=== PATIENT | female | born 1990 ===

== ENCOUNTER 2017-01-09 08:56 | Emergency (ER) | payer MEDICAID ==
[2017-01-09 08:56] VITALS: BMI 26.6
[2017-01-09 09:08] VITALS: BP 113/74; PULSE 88; RESP 20; TEMP 97.9; O2SAT 98
--- NOTE | 2017-01-09 11:37 | C.PDOC ---
History Of Present Illness 26 year old female presents to the ED with complaints of a dry cough for the past few weeks. Patient has a history of allergies and is not taking anything for it. Denies fever, nausea, vomiting, chest pain, SOB, or recent travel. Chief Complaint (Nursing): Cough, Cold, Congestion History Per: Patient History/Exam Limitations: no limitations Onset/Duration Of Symptoms: Days Current Symptoms Are (Timing): Still Present Sick Contacts (Context): None Associated Symptoms: Cough. denies: Fever, Chills, Sore Throat, Nasal Congestion, Nausea, Vomiting Ear Symptoms: Bilateral: None Severity: Mild Past Medical History Reviewed: Historical Data, Nursing Documentation, Vital Signs Vital Signs: Last Vital Signs Temp 97.9 F 01/09/17 09:06 Pulse 88 01/09/17 09:06 Resp 20 01/09/17 09:06 BP 113/74 01/09/17 09:06 Pulse Ox 98 01/09/17 11:46 - Medical History PMH: Asthma (LAST HOSPITALIZED "I BELIEVE LAST YEAR."(2016)) Surgical History: Tonsillectomy - [facility] Procedures CLOSURE SKIN & SUBCUTANEOUS NEC (11/06/14) DIATHER/CRYO TURBINECTOM (08/03/14) ETHMOIDECTOMY (08/03/14) EXC MAX SINUS LESION NEC (08/03/14) OTHER COMPUTER ASSISTED SURGERY (08/03/14) Family History: States: Unknown Family Hx - Social History Hx Tobacco Use: No Hx Alcohol Use: Yes Hx Substance Use: Yes (Marijuana) - Immunization History Hx Tetanus Toxoid Vaccination: Yes Hx Influenza Vaccination: No Hx Pneumococcal Vaccination: Yes Review Of Systems Except As Marked, All Systems Reviewed And Found Negative. Constitutional: Negative for: Fever, Chills Cardiovascular: Negative for: Chest Pain Respiratory: Positive for: Cough. Negative for: Shortness of Breath, Sputum, Wheezing Gastrointestinal: Negative for: Nausea, Vomiting Skin: Negative for: Rash Physical Exam - Physical Exam Appears: Non-toxic, No Acute Distress Skin: Normal Color, Warm, Dry Head: Atraumatic, Normacephalic Eye(s): bilateral: Normal Inspection Ear(s): Bilateral: Normal Nose: No Discharge, Other (+Surgical changes to the nares secondary to recent polyp removal) Oral Mucosa: Moist Throat: Erythema, No Exudate, Other (+cobblestoning noted) Neck: Supple Lymphatic: No Adenopathy Chest: Symmetrical Cardiovascular: Rhythm Regular Respiratory: Normal Breath Sounds, No Accessory Muscle Use, No Rales, No Rhonchi , No Wheezing Extremity: Normal ROM Neurological/Psych: Oriented x3, Normal Speech, Normal Cognition ED Course And Treatment O2 Sat by Pulse Oximetry: 98 (Room air) Pulse Ox Interpretation: Normal Progress Note: Rx given and patient advised to follow up with the clinic or return if symptoms worsen. Disposition - Disposition Disposition: HOME/ ROUTINE Disposition Time: 09:45 Condition: GOOD Additional Instructions: Thank you for letting us take care of you today. Your provider was Dr. Cardona. You were treated for seasonal allergies. The emergency medical care you received today was directed at your acute symptoms. If you were prescribed any medication, please fill it and take as directed. It may take several days for your symptoms to resolve. Return to the Emergency Department if your symptoms worsen, do not improve, or if you have any other problems. Please contact your doctor or call one of the physicians/clinics you have been referred to that are listed on the Patient Visit Information form that is included in your discharge packet. Bring any paperwork you were given at discharge with you along with any medications you are taking to your follow up visit. Our treatment cannot replace ongoing medical care by a primary care provider (PCP) outside of the emergency department. Thank you for allowing the [facility] team to be part of your care today. Follow up with your doctor in 3-4 days to be re-evaluated. Prescriptions: Montelukast [Singulair] 10 mg PO DAILY #14 tab Instructions: Allergic Rhinitis (ED) - Clinical Impression Clinical Impression: Seasonal allergies - Scribe Statement The provider has reviewed the documentation as recorded by the Scribe Rowdy Wynne. Provider Attestation: All medical record entries made by the Scribe were at my direction and personally dictated by me. I have reviewed the chart and agree that the record accurately reflects my personal performance of the history, physical exam, medical decision making, and the department course for this patient. I have also personally directed, reviewed, and agree with the discharge instructions and disposition.
== END 2017-01-09 09:46 | disposition home or self-care (01) ==
LOC: C.ER 08:56
DX: J30.2 Other seasonal allergic rhinitis (principal)

== ENCOUNTER 2017-04-30 22:07 | Emergency (ER) | payer MEDICAID ==
[2017-04-30 22:07] VITALS: BMI 26.6
[2017-04-30] MEDS ORDERED: Albuterol-Ipratrop 3 mg / 0.5 (3 ml) UD INH STA (22:22)
[2017-04-30 22:26] VITALS: TEMP 98.6
--- NOTE | 2017-04-30 23:19 | C.PDOC ---
History Of Present Illness 26 year old female BIBA for an acute allergic reaction after taking aleve. Patient has a known allergy to ibuprofen; solumedrol, epi, and benadryl administered by ALS. Patient reports taking benadryl prior to ALS arrival; as per ALS, patient's symptoms improved LINE SERVER. Denies SOB, rash, or throat itchiness. Patient smokes 4 cigarettes a day. Chief Complaint (Nursing): Shortness Of Breath History Per: Patient History/Exam Limitations: no limitations Onset/Duration Of Symptoms: Hrs Current Symptoms Are (Timing): Still Present Possible Cause: Medication Associated Symptoms: denies: Skin Rash, Trouble Swallowing, Itching, Chest Pain Home/EMS Treatment: Benadryl Recent travel outside of the [place]: No Past Medical History Reviewed: Historical Data, Nursing Documentation, Vital Signs Vital Signs: Last Vital Signs Temp 98.6 F 04/30/17 22:22 Pulse 98 H 04/30/17 23:31 Resp 18 04/30/17 23:38 BP 119/84 04/30/17 23:31 Pulse Ox 97 04/30/17 23:31 - Medical History PMH: Asthma (LAST HOSPITALIZED "I BELIEVE LAST YEAR."(2016)) Surgical History: Tonsillectomy - [facility] Procedures CLOSURE SKIN & SUBCUTANEOUS NEC (11/06/14) DIATHER/CRYO TURBINECTOM (08/03/14) ETHMOIDECTOMY (08/03/14) EXC MAX SINUS LESION NEC (08/03/14) OTHER COMPUTER ASSISTED SURGERY (08/03/14) Family History: States: Unknown Family Hx - Social History Hx Tobacco Use: No Hx Alcohol Use: Yes Hx Substance Use: Yes (Marijuana) - Immunization History Hx Tetanus Toxoid Vaccination: Yes Hx Influenza Vaccination: No Hx Pneumococcal Vaccination: Yes Review Of Systems ENT: Negative for: Mouth Pain, Mouth Swelling, Throat Pain, Throat Swelling Cardiovascular: Negative for: Chest Pain, Palpitations Respiratory: Positive for: Wheezing. Negative for: Cough, Shortness of Breath Skin: Negative for: Rash Physical Exam - Physical Exam Appears: Non-toxic Skin: Normal Color, Warm, Dry, No Rash Head: Atraumatic, Normacephalic Oral Mucosa: Moist Lips: Normal Appearing, No Swelling Throat: Normal, No Other (Swelling) Neck: Normal, Supple Chest: Symmetrical, No Tenderness Cardiovascular: Rhythm Regular, No Murmur Respiratory: No Accessory Muscle Use, No Rales, Rhonchi (Scattered), Wheezing, Other (Mild-moderate respiratory distress) Gastrointestinal/Abdominal: Soft, No Tenderness Neurological/Psych: Oriented x3, Normal Speech, Normal Cognition ED Course And Treatment O2 Sat by Pulse Oximetry: 98 (Room air) Pulse Ox Interpretation: Normal Progress Note: Nebulizer treatment administered. Reevaluation Time: 23:17 Reassessment Condition: Improved (calm comfortable, persistent mild scattered wheezing which pt considers baseline Refuses further nebs treatments.) Medical Decision Making Medical Decision Making: allergic rxn to Aleve, ? prior allergic rxn's to ibuprofen. Much improved in ED, stable for d/c Disposition Doctor Will See Patient In The: Office Counseled Patient/Family Regarding: Studies Performed, Diagnosis - Disposition Referrals: Jocelyne Conde MD [Staff Provider] - Disposition: HOME/ ROUTINE Disposition Time: 23:18 Condition: GOOD Additional Instructions: return to ER if symtoms worsten Instructions: General Allergic Reaction (ED) Forms: [facility] (Tamazight) - Clinical Impression Clinical Impression: Asthma, Allergic reaction caused by a drug - Scribe Statement The provider has reviewed the documentation as recorded by the Scribterrell Nicholas All medical record entries made by the Scribe were at my direction and personally dictated by me. I have reviewed the chart and agree that the record accurately reflects my personal performance of the history, physical exam, medical decision making, and the department course for this patient. I have also personally directed, reviewed, and agree with the discharge instructions and disposition.
[2017-04-30 23:32] VITALS: BP 119/84; PULSE 98; RESP 18
[2017-05-01 04:06] VITALS: O2SAT 98
== END 2017-04-30 23:40 | disposition home or self-care (01) ==
LOC: C.ER 22:07
DX: J45.909 Unspecified asthma, uncomplicated (principal); T50.995A Adverse effect of other drugs, medicaments and biological substances, initial encounter; Y92.89 Other specified places as the place of occurrence of the external cause; Z72.0 Tobacco use

== ENCOUNTER 2017-05-14 07:14 | Day surgery (SDC) | payer MEDICAID ==
[2017-05-14] MEDS ORDERED: ceFAZolin IV 1 gm in Dextrose 1 GM/50 ML BAG IVPB ONE (07:22)
[2017-05-14] MEDS ORDERED: Lidocaine 2% w Epi 1:100,000 Inj IJ ONE (07:23)
[2017-05-14] MEDS ORDERED: EPINEPHrine 1:1000 Nasal Sol(30mL) ONE (07:23)
[2017-05-14] MEDS ORDERED: Acetaminophen-Codeine 300/30 mg Tab PO PRN (08:29)
[2017-05-14] MEDS ORDERED: Dextrose 5%/0.45% NS 1,000 ML IV SCH (08:30)
[2017-05-14] MEDS ORDERED: Lactated Ringer's 1,000 ML IV ONE (08:55)
[2017-05-14] MEDS ORDERED: Midazolam 2 MG/2 ML VIAL ONE (08:57)
[2017-05-14] MEDS ORDERED: Propofol 10 mg/ml Inj (20 ML) ONE (08:57)
[2017-05-14] MEDS ORDERED: White Petrolatum/Mineral Oil Ophth Oint(3.5 gm) ONE (09:01)
[2017-05-14] MEDS ORDERED: Succinylcholine Chloride 20 mg/ml Syr (5 ml) IV ONE (09:02)
[2017-05-14] MEDS ORDERED: HYDROmorphone 0.5 mg/0.5 ml ISec IVP PRN (10:22)
[2017-05-14] MEDS ORDERED: Lactated Ringer's 1,000 ML IV SCH (10:30)
[2017-05-14 13:30] VITALS: BP 123/74; PULSE 88; RESP 18; TEMP 97.8; O2SAT 97
--- NOTE | 2017-05-14 19:46 | OP ---
PROCEDURE DATE: 05/14/2017 PREOPERATIVE DIAGNOSIS: Nasal polyposis. POSTOPERATIVE DIAGNOSIS: Nasal polyposis. PROCEDURE: Endoscopic left ethmoidectomy, endoscopic left sphenoidotomy, and endoscopic left frontal sinusotomy. DESCRIPTION OF PROCEDURE: The patient was brought into the room and placed in the supine position. Anesthesia was initiated through an ET tube. Adrenaline-soaked pledgets were inserted into the nasal cavity, remained there for at least 5 minutes and removed. Navigation was set up and used throughout case in order to make sure that the skull base and orbit were not entered. The patient was draped in the usual manner. The scope was inserted into the nasal cavity on the left. The nasal turbinate was injected with lidocaine with epinephrine and medialized. Polyps were noted in the left ethmoid sinuses. The debrider was used to enter the ethmoid area inferomedially going posteriorly to the anterior face of the sphenoid and anteriorly and superiorly until the polyps were removed. The frontal recess was noted to be stenosed and opened using forceps. Next, the middle turbinate was lateralized. A polyp was noted medial to the middle turbinate and the debrider was used to remove it. Next, the suction hooked up to navigation and was used to locate the sphenoid antrum, which was noted to be stenosed and enlarged using forceps. Next, attention was turned to the right, it was noted that the middle turbinate was adherent to the lateral nasal wall, it was freed from the lateral nasal wall. Some polyps were noted in the nasal cavity and emanating from the ethmoid sinuses, which were also debrided. It was noted that this was not in the consent; however, I felt that the patient had polyps on the other side which were not clearly seen on CAT scan and nasal endoscopy in the office due to the fact that the middle turbinate had lateralized. The patient would beneficial from their removal. Bleeding was controlled on both sides using Adrenaline-soaked pledgets and suction cautery. Splints were placed. The patient was taken off anesthesia and taken to recovery room in a stable manner. Phil Araya MD [facility]
== END 2017-05-14 13:10 | disposition home or self-care (01) ==
LOC: C.SDS 07:14
PROVIDERS: ATTEND Otolaryngology
DX: J32.1 Chronic frontal sinusitis (principal); J32.2 Chronic ethmoidal sinusitis; J32.3 Chronic sphenoidal sinusitis; J33.9 Nasal polyp, unspecified
CPT/HCPCS: 31255; 31276; 31288; 88304; J0690; J2250; J2405; J2704; J3010; J7120

== ENCOUNTER 2017-05-28 08:07 | Emergency (ER) | payer MEDICAID ==
[2017-05-28 08:07] VITALS: BMI 26.6
[2017-05-28 08:16] VITALS: TEMP 98.5
--- NOTE | 2017-05-28 08:53 | C.PDOC ---
History Of Present Illness Patient is a 26 year old female presents to ED for evaluation of intermittent squeezing abdominal pain for the last 2 days. States that pain comes and goes throughout the entire day. Pt states she felt a heart burn yesterday. Notes pain is not affect by food intake. Denies taking any OTC pain medications. Notes last BM was this morning, soft stool. Otherwise, denies any n/v/d, vaginal bleeding, vaginal discharge, dysuria, hematuria, urinary frequency, or fever. LMP: 05/04/17. pt sts she overate on Saturday. Time Seen by Provider: 05/28/17 08:13 Chief Complaint (Nursing): Abdominal Pain History Per: Patient History/Exam Limitations: no limitations Onset/Duration Of Symptoms: Days (2), Intermittent Episodes Current Symptoms Are (Timing): Still Present Location Of Pain/Discomfort: Diffuse Radiation Of Pain To:: None Quality Of Discomfort: Other (squeezing intermittently) Associated Symptoms: denies: Fever, Vomiting, Loss Of Appetite, Back Pain, Constipation, Urinary Symptoms Exacerbating Factors: None Alleviating Factors: None Last Bowel Movement: Today Additional History Per: Patient Abnormal Vaginal Bleeding: No Last Menstral Period: Past Medical History Reviewed: Historical Data, Nursing Documentation, Vital Signs Vital Signs: Last Vital Signs Temp 98.5 F 05/28/17 08:12 Pulse 97 H 05/28/17 08:12 Resp 20 05/28/17 08:12 BP 96/67 L 05/28/17 08:12 Pulse Ox 97 05/28/17 09:37 - Medical History PMH: Asthma (LAST HOSPITALIZED "I BELIEVE LAST YEAR."(2016)) Surgical History: Tonsillectomy - [facility] Procedures CLOSURE SKIN & SUBCUTANEOUS NEC (11/06/14) DIATHER/CRYO TURBINECTOM (08/03/14) ETHMOIDECTOMY (08/03/14) EXC MAX SINUS LESION NEC (08/03/14) OTHER COMPUTER ASSISTED SURGERY (08/03/14) Family History: States: Unknown Family Hx - Social History Hx Tobacco Use: No Hx Alcohol Use: No Hx Substance Use: Yes (Marijuana) - Immunization History Hx Tetanus Toxoid Vaccination: Yes Hx Influenza Vaccination: No Hx Pneumococcal Vaccination: Yes Review Of Systems Constitutional: Negative for: Fever, Chills Gastrointestinal: Positive for: Abdominal Pain. Negative for: Nausea, Vomiting , Diarrhea, Constipation, Melena, Hematochezia Genitourinary: Negative for: Dysuria, Frequency, Hematuria, Vaginal Discharge, Vaginal Bleeding, Pelvic Pain Musculoskeletal: Negative for: Back Pain Skin: Negative for: Rash Neurological: Negative for: Weakness, Numbness Physical Exam - Physical Exam Appears: Non-toxic, No Acute Distress Skin: Normal Color, Warm, Dry, No Rash Head: Atraumatic, Normacephalic Eye(s): bilateral: Normal Inspection Oral Mucosa: Moist Neck: Normal ROM, Supple Chest: Symmetrical, No Deformity, No Tenderness Cardiovascular: Rhythm Regular, No Murmur Respiratory: Normal Breath Sounds, No Rales, No Rhonchi, No Wheezing Gastrointestinal/Abdominal: Soft, Tenderness (mild suprapubic, and right hypogastric tenderness. No RLQ or ruq tenderness, neg mcburneys and neg murphys) , No Guarding, No Rebound, No Other ((-)McBurney's (-)Carrera's) Back: Normal Inspection, No CVA Tenderness Extremity: Bilateral: Atraumatic, Normal ROM Neurological/Psych: Oriented x3, Normal Speech, Normal Cognition ED Course And Treatment - Laboratory Results Result Diagrams: 05/28/17 09:01 05/28/17 09:01 O2 Sat by Pulse Oximetry: 97 (on RA) Pulse Ox Interpretation: Normal Medical Decision Making Medical Decision Making: Plan: Blood work, UA Patient was given Pepcid. 940 am On re-evaluation, patient reports feeling better. Abdomen remains soft,non tender, pt denies urinary symtpoms, willnot treat for uti. . No acute distress, smiling and talking to friend. will d/c with pepcid, f/u pmd. Disposition Counseled Patient/Family Regarding: Studies Performed, Diagnosis, Need For Followup, Rx Given - Disposition Referrals: Jocelyne Conde MD [Staff Provider] - Disposition: HOME/ ROUTINE Disposition Time: 09:42 Condition: STABLE Additional Instructions: Eat bland foods in small amounts. Take Pepcid as prescribed. Follow up with Dr Conde. Return to ER for any worse pain, vomiting, diarrhea or any other concerning symptoms. 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 - Scribe Statement The provider has reviewed the documentation as recorded by the Olimpiaibterrell Rangel All medical record entries made by the Olimpiaibe were at my direction and personally dictated by me. I have reviewed the chart and agree that the record accurately reflects my personal performance of the history, physical exam, medical decision making, and the department course for this patient. I have also personally directed, reviewed, and agree with the discharge instructions and disposition.
[2017-05-28 08:54] LABS: RBC URINE 1 /hpf (0-3); URINE BILIRUBIN NEGATIVE (NEGATIVE); URINE BLOOD NEGATIVE (NEGATIVE); URINE COLOR Yellow (YELLOW); URINE GLUCOSE (UA) NORMAL (Normal); URINE KETONE NEGATIVE (NEGATIVE); URINE LEUKOCYTE ESTERASE 1+ Leu/uL (Negative); URINE PROTEIN NEGATIVE (NEGATIVE); URINE UROBILINOGEN NORMAL mg/dL (0.2-1.0); WBC URINE 9 /hpf (0-5)
[2017-05-28 09:05] LABS: BASO # 0.1 K/uL (0.0-0.2); BASO % 0.6 % (0.0-2.0); EOS # 0.2 K/uL (0.0-0.7); EOS % 2.4 % (0.0-4.0); HEMATOCRIT 40.8 % (34.0-47.0); LYMPH # 1.4 K/uL (1.0-4.3); MEAN CELL VOLUME 91.7 fL (81.0-99.0); MEAN CORPUSCULAR HEMOGLOBIN 30.7 pg (27.0-31.0); MEAN CORPUSCULAR HGB CONC 33.5 g/dL (33.0-37.0); MEAN PLATELET VOLUME 8.5 fL (7.2-11.7); MONO # 0.9 K/uL (0.0-0.8); MONO % 10.3 % (0.0-10.0); RED CELL DISTRIBUTION WIDTH 14.3 % (11.5-14.5)
[2017-05-28 09:14] LABS: CHLORIDE 107 mmol/L (98-107)
[2017-05-28 09:15] LABS: POTASSIUM 3.9 mmol/L (3.6-5.2); SODIUM 139 mmol/L (132-148)
[2017-05-28 09:17] LABS: ALB/GLOB RATIO 1.3 (1.0-2.1); ALKALINE PHOSPHATASE 81 U/L (38-126); AST/SGOT 15 U/L (14-36); BILIRUBIN,TOTAL 0.3 mg/dL (0.2-1.3); CARBON DIOXIDE 22 mmol/L (22-30); GFR AFRICAN-AMERICAN > 60; TOTAL PROTEIN 6.1 g/dL (6.3-8.3)
[2017-05-28 09:18] LABS: ALT/SGPT 23 U/L (9-52); BLOOD UREA NITROGEN 8 mg/dL (7-17); CALCIUM 8.5 mg/dl (8.6-10.4); GLUCOSE,RANDOM 95 mg/dL (65-105)
[2017-05-28 09:56] VITALS: BP 99/64; PULSE 90; RESP 18
[2017-05-28 19:03] VITALS: O2SAT 97
== END 2017-05-28 09:55 | disposition home or self-care (01) ==
LOC: C.ER 08:07
DX: K29.70 Gastritis, unspecified, without bleeding (principal)

== ENCOUNTER 2017-09-30 22:52 | Emergency (ER) | payer MEDICAID ==
[2017-09-30 22:53] VITALS: BMI 26.6
[2017-09-30 23:10] VITALS: BP 115/80; PULSE 99; RESP 20; TEMP 99.6; O2SAT 97
--- NOTE | 2017-09-30 23:40 | C.PDOC ---
History Of Present Illness 27 year old female presents to the ED for evaluation of cough, cold, facial pressure, chest and nasal congestion which began around 2 days ago. Patient feels like her asthma is "acting up." She denies fever, chills, recent travel. Time Seen by Provider: 09/30/17 23:13 Chief Complaint (Nursing): Cough, Cold, Congestion History Per: Patient History/Exam Limitations: no limitations Onset/Duration Of Symptoms: Days (2) Current Symptoms Are (Timing): Still Present Associated Symptoms: Cough, Nasal Congestion. denies: Fever, Chills Additional History Per: Patient Past Medical History Reviewed: Historical Data, Nursing Documentation, Vital Signs Vital Signs: Last Vital Signs Temp 99.6 F 09/30/17 23:06 Pulse 99 H 09/30/17 23:06 Resp 20 09/30/17 23:06 BP 115/80 09/30/17 23:06 Pulse Ox 97 10/01/17 00:18 - Medical History PMH: Asthma (LAST HOSPITALIZED "I BELIEVE LAST YEAR."(2016)) Surgical History: Tonsillectomy - [facility] Procedures CLOSURE SKIN & SUBCUTANEOUS NEC (11/06/14) DIATHER/CRYO TURBINECTOM (08/03/14) ETHMOIDECTOMY (08/03/14) EXC MAX SINUS LESION NEC (08/03/14) OTHER COMPUTER ASSISTED SURGERY (08/03/14) Family History: States: Unknown Family Hx - Social History Hx Tobacco Use: No Hx Alcohol Use: No Hx Substance Use: Yes (Marijuana) - Immunization History Hx Tetanus Toxoid Vaccination: Yes Hx Influenza Vaccination: No Hx Pneumococcal Vaccination: Yes Review Of Systems Constitutional: Negative for: Fever, Chills ENT: Positive for: Nose Congestion Respiratory: Positive for: Cough Physical Exam - Physical Exam Appears: Non-toxic, No Acute Distress Skin: Normal Color, Warm, Dry Head: Atraumatic, Normacephalic Eye(s): bilateral: Normal Inspection Ear(s): Bilateral: Normal Nose: Discharge Oral Mucosa: Moist Throat: Normal, No Erythema, No Exudate Neck: Normal ROM, Supple Chest: Symmetrical, No Deformity, No Tenderness Cardiovascular: Rhythm Regular, No Murmur Respiratory: No Rales, No Rhonchi, Wheezing (diffuse, expiratory ) Extremity: Normal ROM, Capillary Refill (less than 2 seconds ) Neurological/Psych: Oriented x3, Normal Speech, Normal Cognition Gait: Steady ED Course And Treatment O2 Sat by Pulse Oximetry: 97 (on RA) Pulse Ox Interpretation: Normal Progress Note: Albuterol INH, Benadryl PO and Prednisone PO administered. Patient reports missed period on arrival. UCG positive. Patient denies any OB related complaints at this ricky, is made aware of result and is advised to follow up for care. Shayna is resting comfortably, showing no signs of distress and reports an improvement in his symptoms. Patient is stable for discharge and is advised to follow up with PMD within 1-2 days for further evaluation. 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 - Scribe Statement The provider has reviewed the documentation as recorded by the Scribe (Marguerite Rangel) All medical record entries made by the Scribe were at my direction and personally dictated by me. I have reviewed the chart and agree that the record accurately reflects my personal performance of the history, physical exam, medical decision making, and the department course for this patient. I have also personally directed, reviewed, and agree with the discharge instructions and disposition.
[2017-09-30] MEDS ORDERED: DiphenhydrAMINE 12.5 mg/5 ml LIQ UD (5 ml) PO STA (23:41)
[2017-09-30] MEDS ORDERED: Albuterol 0.083% Inhal Sol (2.5 mg/3 mL) UD ONE (23:41)
[2017-09-30] MEDS ORDERED: Albuterol 0.083% Inhal Sol (2.5 mg/3 mL) UD INH SCH (23:45)
== END 2017-10-01 00:25 | disposition home or self-care (01) ==
LOC: C.ER 22:52
DX: J06.9 Acute upper respiratory infection, unspecified (principal); J45.909 Unspecified asthma, uncomplicated; Z32.01 Encounter for pregnancy test, result positive

== ENCOUNTER 2017-11-15 02:32 | Emergency (ER) | payer MEDICAID ==
[2017-11-15 02:32] VITALS: BMI 26.6
[2017-11-15] MEDS ORDERED: Albuterol-Ipratrop 3 mg / 0.5 (3 ml) UD ONE (02:54)
[2017-11-15] MEDS ORDERED: Albuterol-Ipratrop 3 mg / 0.5 (3 ml) UD INH STA (03:00)
--- NOTE | 2017-11-15 03:30 | C.PDOC ---
History Of Present Illness 27 year old female with PMHx of asthma presents to the ED c/o URI symptoms for the past couple of days. Patient states that tonight she developed chest tightness, wheezing. Patient reports she was admitted in the past [place] asthma but did not need a ventilator. Patient states she had a nebulizer at home. Patient denies fever, chills, nausea, vomit, diarrhea, recent travel. Chief Complaint (Nursing): Shortness Of Breath History Per: Patient History/Exam Limitations: no limitations Onset/Duration Of Symptoms: Days Current Symptoms Are (Timing): Still Present Initiating Event: Upper Respiratory Illness Quality: Tightness Current Respiratory Medications: See Home Med List Severity: None Recent travel outside of the [place]: No Additional History Per: Patient Past Medical History Reviewed: Historical Data, Nursing Documentation, Vital Signs Vital Signs: Last Vital Signs Temp 97 F L 11/15/17 03:45 Pulse 90 11/15/17 03:45 Resp 20 11/15/17 03:45 BP 118/70 11/15/17 03:45 Pulse Ox 98 11/15/17 03:45 - Medical History PMH: Asthma Surgical History: Tonsillectomy - [facility] Procedures CLOSURE SKIN & SUBCUTANEOUS NEC (11/06/14) DIATHER/CRYO TURBINECTOM (08/03/14) ETHMOIDECTOMY (08/03/14) EXC MAX SINUS LESION NEC (08/03/14) OTHER COMPUTER ASSISTED SURGERY (08/03/14) Family History: States: Unknown Family Hx - Social History Hx Tobacco Use: No Hx Alcohol Use: No Hx Substance Use: No - Immunization History Hx Tetanus Toxoid Vaccination: Yes Hx Influenza Vaccination: No Hx Pneumococcal Vaccination: Yes Review Of Systems Constitutional: Negative for: Fever, Chills Cardiovascular: Negative for: Chest Pain Respiratory: Positive for: Cough, Shortness of Breath Gastrointestinal: Negative for: Nausea, Vomiting, Abdominal Pain Genitourinary: Negative for: Dysuria Skin: Negative for: Rash Neurological: Negative for: Weakness, Numbness, Headache Physical Exam - Physical Exam Appears: Non-toxic, No Acute Distress Skin: Normal Color, Warm, Dry Head: Atraumatic, Normacephalic Eye(s): bilateral: Normal Inspection Ear(s): Bilateral: Normal Nose: No Discharge, No Deformity Oral Mucosa: Moist Throat: Normal, No Erythema, No Exudate Neck: Normal ROM, Supple Chest: Symmetrical Cardiovascular: Rhythm Regular, No Murmur Respiratory: Wheezing (B/L expiratory ) Gastrointestinal/Abdominal: Soft, No Tenderness, No Guarding, No Rebound Extremity: Normal ROM, No Tenderness, No Deformity, No Swelling Neurological/Psych: Oriented x3, Normal Speech, Normal Cognition Gait: Steady ED Course And Treatment O2 Sat by Pulse Oximetry: 96 (On RA) Pulse Ox Interpretation: Normal Medical Decision Making Medical Decision Making: Impression: asthma exacerbation Plan: * Albuterol 3 ml INH * Prednisone 60 mg PO Disposition - Disposition Referrals: [facility] [Outside] Disposition: HOME/ ROUTINE Disposition Time: 03:28 Condition: GOOD Prescriptions: Albuterol 0.083% [Albuterol 0.083% Inhal [place] (2.5 mg/3 ml) UD] 2.5 mg IH QID PRN #25 neb PRN Reason: Cough And Congestion predniSONE [predniSONE Tab] 20 mg PO DAILY #5 tab Instructions: Asthma in Adults Forms: [facility] ([place]inean) - Clinical Impression Clinical Impression: Asthma attack - Scribe Statement The provider has reviewed the documentation as recorded by the Scribe Ruslan Shea All medical record entries made by the Scribe were at my direction and personally dictated by me. I have reviewed the chart and agree that the record accurately reflects my personal performance of the history, physical exam, medical decision making, and the department course for this patient. I have also personally directed, reviewed, and agree with the discharge instructions and disposition.
[2017-11-15 03:46] VITALS: BP 118/70; PULSE 90; RESP 20; TEMP 97
[2017-11-15 03:49] VITALS: O2SAT 96
== END 2017-11-15 03:46 | disposition home or self-care (01) ==
LOC: C.ER 02:32
DX: J45.909 Unspecified asthma, uncomplicated (principal); F17.210 Nicotine dependence, cigarettes, uncomplicated

== ENCOUNTER 2017-11-27 22:51 | Emergency (ER) | payer MEDICAID ==
[2017-11-27 22:51] VITALS: BMI 26.6
--- NOTE | 2017-11-27 23:08 | C.PDOC ---
History Of Present Illness Patient presents to ED today with complaints of shortness of breath for the past 3 weeks. She reports she was on a short course of steroids which she has finished however the symptoms are still present. She is able to speak full sentences and denies any fever, chills, nausea and vomiting. She has no other complaints. Time Seen by Provider: 11/27/17 23:07 Chief Complaint (Nursing): Shortness Of Breath History Per: Patient History/Exam Limitations: no limitations Onset/Duration Of Symptoms: Days Current Symptoms Are (Timing): Still Present Associated Symptoms: denies: Fever Past Medical History Reviewed: Historical Data, Nursing Documentation, Vital Signs Vital Signs: Last Vital Signs Temp 98.0 F 11/27/17 22:58 Pulse 96 H 11/27/17 22:58 Resp 22 11/27/17 23:44 BP 137/84 11/27/17 22:58 Pulse Ox 96 11/28/17 01:35 - Medical History PMH: Asthma Surgical History: Tonsillectomy - [facility] Procedures CLOSURE SKIN & SUBCUTANEOUS NEC (11/06/14) DIATHER/CRYO TURBINECTOM (08/03/14) ETHMOIDECTOMY (08/03/14) EXC MAX SINUS LESION NEC (08/03/14) OTHER COMPUTER ASSISTED SURGERY (08/03/14) Family History: States: Unknown Family Hx - Social History Hx Tobacco Use: No Hx Alcohol Use: No Hx Substance Use: No - Immunization History Hx Tetanus Toxoid Vaccination: Yes Hx Influenza Vaccination: No Hx Pneumococcal Vaccination: Yes Review Of Systems Constitutional: Negative for: Fever, Chills Respiratory: Positive for: Shortness of Breath Gastrointestinal: Negative for: Vomiting, Diarrhea Physical Exam - Physical Exam Appears: Non-toxic Skin: Normal Color Head: Normacephalic Eye(s): bilateral: Normal Inspection Oral Mucosa: Moist Neck: Supple Chest: Symmetrical Cardiovascular: Rhythm Regular Respiratory: Decreased Breath Sounds, Wheezing (diffuse) Neurological/Psych: Oriented x3 ED Course And Treatment - Laboratory Results Result Diagrams: 11/27/17 23:42 11/27/17 23:42 ECG: Interpreted By Me, Viewed By Me ECG Rhythm: Sinus Rhythm, R BBB, Nonspecific Changes Rate From EC O2 Sat by Pulse Oximetry: 96 (RA) Pulse Ox Interpretation: Normal - Radiology CXR: Interpreted by Me, Viewed By Me CXR Interpretation: No: Infiltrates, Fracture, Pnemothorax Reevaluation Time: 01:32 Reassessment Condition: Improved Disposition Counseled Patient/Family Regarding: Studies Performed, Diagnosis, Need For Followup - Disposition Referrals: Jocelyne Conde MD [Staff Provider] - Disposition: HOME/ ROUTINE Disposition Time: 23:08 Condition: FAIR Prescriptions: Albuterol/Ipratropium [Duoneb 3 MG/3 Ml-0.5 MG/3 Ml 3 Ml] 3 ml IH QID PRN #50 neb PRN Reason: Wheezing Azithromycin [Zithromax Tri-Fabián] 500 mg PO DAILY #3 tab Prednisone [Deltasone] 20 mg PO DAILY #5 tablet Promethazine/Codeine [Codeine/Promethazine 10 MG/5 Ml-6.25 MG/5 Ml] 5 ml PO QID PRN #200 udc PRN Reason: Cough Instructions: Asthma, Adult (DC) Forms: [facility] (Croatian) - Clinical Impression Clinical Impression: Exacerbation of asthma - Scribe Statement The provider has reviewed the documentation as recorded by the Scribe (Yodit Julien) Provider Attestation: All medical record entries made by the Scribe were at my direction and personally dictated by me. I have reviewed the chart and agree that the record accurately reflects my personal performance of the history, physical exam, medical decision making, and the department course for this patient. I have also personally directed, reviewed, and agree with the discharge instructions and disposition.
[2017-11-27] MEDS ORDERED: Sodium Chloride 0.9% 1,000 ML IV ONE (23:09)
[2017-11-27] MEDS ORDERED: Albuterol-Ipratrop 3 mg / 0.5 (3 ml) UD ONE (23:10)
[2017-11-27] MEDS: Albuterol-Ipratrop 3 mg / 0.5 (3 ml) UD IH SCH ×3 (23:15→23:54)
[2017-11-27 23:45] LABS: BASO % 0.5 % (0.0-2.0); EOS # 1.4 K/uL (0.0-0.7); EOS % 13.4 % (0.0-4.0); HEMOGLOBIN 13.1 g/dL (11.0-16.0); LYMPH # 1.9 K/uL (1.0-4.3); MEAN CELL VOLUME 92.7 fL (81.0-99.0); MEAN CORPUSCULAR HEMOGLOBIN 31.7 pg (27.0-31.0); MEAN CORPUSCULAR HGB CONC 34.2 g/dL (33.0-37.0); MEAN PLATELET VOLUME 8.2 fL (7.2-11.7); MONO # 0.8 K/uL (0.0-0.8); MONO % 7.9 % (0.0-10.0); NEUT # 6.1 K/uL (1.8-7.0); NEUT % 59.2 % (50.0-75.0); RBC 4.15 Mil/uL (3.80-5.20); RED CELL DISTRIBUTION WIDTH 14.1 % (11.5-14.5); WHITE BLOOD COUNT 10.2 K/uL (4.8-10.8)
[2017-11-27 23:51] LABS: ABG ALLEN TEST POS; ARTERIAL BLOOD GAS HCO3 24.6 mmol/L (21-28); ARTERIAL BLOOD GAS O2 SAT 97.5 % (95-98); ARTERIAL BLOOD GAS PCO2 42 mm/Hg (35-45); ARTERIAL BLOOD GAS PH 7.38 (7.35-7.45); ARTERIAL BLOOD GAS PO2 78 mm/Hg (80-100); ARTERIAL BLOOD GAS TCO2 26.1 mmol/L (22-28)
[2017-11-27 23:57] LABS: ALB/GLOB RATIO 1.4 (1.0-2.1); ALBUMIN 3.8 g/dL (3.5-5.0); ALT/SGPT 21 U/L (9-52); AST/SGOT 15 U/L (14-36); BLOOD UREA NITROGEN 16 mg/dL (7-17); CALCIUM 9.2 mg/dl (8.6-10.4); GFR AFRICAN-AMERICAN > 60; GFR NON-AFRICAN AMERICAN > 60
[2017-11-28] MEDS ORDERED: Albuterol-Ipratrop 3 mg / 0.5 (3 ml) UD ONE ×2 (00:26)
[2017-11-28 00:52] LABS: SQUAMOUS EPITHIAL < 1 /hpf (0-5); URINE BILIRUBIN NEGATIVE (NEGATIVE); URINE BLOOD NEGATIVE (NEGATIVE); URINE CLARITY Clear (Clear); URINE COLOR Yellow (YELLOW); URINE GLUCOSE (UA) NORMAL (Normal); URINE LEUKOCYTE ESTERASE NEG Leu/uL (Negative); URINE NITRATE NEGATIVE (NEGATIVE); URINE PROTEIN NEGATIVE (NEGATIVE); URINE UROBILINOGEN NORMAL mg/dL (0.2-1.0)
[2017-11-28 00:59] LABS: HCG,QUALITATIVE URINE NEGATIVE (NEGATIVE)
[2017-11-28 02:11] VITALS: BP 118/80; PULSE 91; RESP 18; TEMP 97.9; O2SAT 99
--- NOTE | 2017-11-28 11:05 | RAD ---
HISTORY: sob COMPARISON: Chest x-ray performed 05/26/15 TECHNIQUE: Chest PA and lateral FINDINGS: LUNGS: No focal consolidation. Please note that chest x-ray has limited sensitivity for the detection of pulmonary masses. PLEURA: No significant pleural effusion identified. No definite pneumothorax . CARDIOVASCULAR: The cardiomediastinal silhouette appears within normal limits of size. OSSEOUS STRUCTURES: No acute osseous abnormality identified. VISUALIZED UPPER ABDOMEN: Unremarkable. OTHER FINDINGS: None. IMPRESSION: No focal consolidation identified.
--- NOTE | 2017-11-28 18:50 | CARD ---
APPROVED REPORT EKG Measurement Heart [id number] <Conclusion> Sinus rhythm with short WY Possible Left atrial enlargement Incomplete right bundle branch block Borderline ECG
== END 2017-11-28 02:15 | disposition home or self-care (01) ==
LOC: C.ER 22:51
DX: J45.901 Unspecified asthma with (acute) exacerbation (principal)
CPT/HCPCS: 36600; 71046; 80053; 81001; 82803; 84703; 85025; 93005; 94640; 96361; 96374; 99284; J2930; J7040

== ENCOUNTER 2018-03-11 08:29 | Emergency (ER) | payer MEDICAID ==
[2018-03-11 08:29] VITALS: BMI 26.6
[2018-03-11 08:37] VITALS: RESP 20; TEMP 98.8
[2018-03-11] MEDS ORDERED: Albuterol-Ipratrop 3 mg / 0.5 (3 ml) UD INH STA ×3 (08:45→10:01)
[2018-03-11] MEDS ORDERED: Albuterol-Ipratrop 3 mg / 0.5 (3 ml) UD ONE ×2 (08:47→09:39)
--- NOTE | 2018-03-11 08:55 | C.PDOC ---
History Of Present Illness 27-year-old female, PMHx includes Asthma, presents to the emergency department with complaints of a productive cough that is associated with wheezing for the past few days. Patient states she took all of her Prednisone, and is not getting any better, prompting visit. She denies any fever, chills, chest pain, or any other associated symptoms. No other complaints at this time. Of note, pt tates she has never been admitted/intubated for asthma. Time Seen by Provider: 03/11/18 08:38 Chief Complaint (Nursing): Cough, Cold, Congestion History Per: Patient History/Exam Limitations: no limitations Current Symptoms Are (Timing): Still Present Past Medical History Reviewed: Historical Data, Nursing Documentation, Vital Signs Vital Signs: Last Vital Signs Temp 98.8 F 03/11/18 08:30 Pulse 100 H 03/11/18 08:30 Resp 20 03/11/18 08:30 BP 112/73 03/11/18 08:30 Pulse Ox 95 03/11/18 09:39 - Medical History PMH: Asthma Surgical History: Tonsillectomy - [facility] Procedures CLOSURE SKIN & SUBCUTANEOUS NEC (11/06/14) DIATHER/CRYO TURBINECTOM (08/03/14) ETHMOIDECTOMY (08/03/14) EXC MAX SINUS LESION NEC (08/03/14) OTHER COMPUTER ASSISTED SURGERY (08/03/14) Family History: States: No Known Family Hx - Social History Hx Tobacco Use: No Hx Alcohol Use: No Hx Substance Use: No - Immunization History Hx Tetanus Toxoid Vaccination: Yes Hx Influenza Vaccination: No Hx Pneumococcal Vaccination: Yes Review Of Systems Constitutional: Negative for: Fever Cardiovascular: Negative for: Chest Pain, Palpitations, Light Headedness Respiratory: Positive for: Cough, Wheezing. Negative for: Hemoptysis, Sputum Gastrointestinal: Negative for: Vomiting Musculoskeletal: Negative for: Back Pain Neurological: Negative for: Weakness, Numbness, Headache, Dizziness Physical Exam - Physical Exam Appears: Non-toxic, No Acute Distress Skin: Normal Color, Warm, Dry, No Rash Head: Atraumatic, Normacephalic Eye(s): bilateral: Normal Inspection Nose: Normal Oral Mucosa: Moist Lips: Normal Appearing Neck: Normal ROM Chest: Symmetrical Cardiovascular: Rhythm Regular, No Murmur Respiratory: No Decreased Breath Sounds, No Accessory Muscle Use, Wheezing (B/L expiratory) Extremity: Normal ROM, No Deformity, No Swelling Neurological/Psych: Oriented x3, Normal Speech ED Course And Treatment O2 Sat by Pulse Oximetry: 95 (RA) Pulse Ox Interpretation: Normal Medical Decision Making Medical Decision Making: Impression: Asthma exacerbation Plan: * Peak Flow * Duoneb, Decadron * Reassess and Disposition Disposition - Disposition Disposition: HOME/ ROUTINE Disposition Time: 11:23 Condition: GOOD Instructions: Upper Respiratory Infection (ED), Asthma in Adults Forms: [facility] (Vietnamese) - Clinical Impression Clinical Impression: Asthma exacerbation - Scribe Statement The provider has reviewed the documentation as recorded by the Scribe (Caryl Coronado) All medical record entries made by the Scribe were at my direction and personally dictated by me. I have reviewed the chart and agree that the record accurately reflects my personal performance of the history, physical exam, medical decision making, and the department course for this patient. I have also personally directed, reviewed, and agree with the discharge instructions and disposition.
[2018-03-11 11:54] VITALS: BP 121/73; PULSE 95; O2SAT 99
== END 2018-03-11 11:54 | disposition home or self-care (01) ==
LOC: C.ER 08:29
DX: J45.901 Unspecified asthma with (acute) exacerbation (principal)
CPT/HCPCS: 94640; 96372; 99283; J1100

== ENCOUNTER 2018-03-17 11:50 | Emergency (ER) | payer MEDICAID ==
[2018-03-17 11:51] VITALS: BMI 26.6
[2018-03-17 12:05] VITALS: BP 111/67; PULSE 109; TEMP 98.8; O2SAT 95
[2018-03-17 12:12] VITALS: RESP 16
[2018-03-17] MEDS ORDERED: Albuterol-Ipratrop 3 mg / 0.5 (3 ml) UD INH STA (13:08)
[2018-03-17] MEDS ORDERED: Albuterol-Ipratrop 3 mg / 0.5 (3 ml) UD ONE (13:20)
--- NOTE | 2018-03-17 13:42 | C.PDOC ---
History Of Present Illness 27yo female comes to ER with complaints of asthma exacerbation. Patient was evaluated in this ER on 03/11 for similar complaints and given steroids and nebulizer treatments. Patient states she gives herselfs 2-3 nebulizer treatments per day and uses her albuterol puffer 2-3 times a day without the aerochamber spacer. She does demonstrate good puffer technique. Patient states she smokes 4 cigarettes per day and has 3 cats at home; her mother also lives with her and smokes "outside the house." Patient denies fever, chest pain, dizziness, lightheadedness. Time Seen by Provider: 03/17/18 12:56 Chief Complaint (Nursing): Shortness Of Breath History Per: Patient History/Exam Limitations: no limitations Onset/Duration Of Symptoms: Days Current Symptoms Are (Timing): Still Present Initiating Event: Upper Respiratory Illness Current Respiratory Medications: Albuterol Associated Symptoms: denies: Fever, Chills, Sweating, Chest Pain, Dizziness, Light-headedness Reports Recently: Seen In ED Additional History Per: Patient Past Medical History Reviewed: Historical Data, Nursing Documentation, Vital Signs Vital Signs: Last Vital Signs Temp 98.8 F 03/17/18 11:59 Pulse 109 H 03/17/18 11:59 Resp 16 03/17/18 12:10 BP 111/67 03/17/18 11:59 Pulse Ox 95 03/17/18 13:41 - Medical History PMH: Asthma Surgical History: Tonsillectomy - [facility] Procedures CLOSURE SKIN & SUBCUTANEOUS NEC (11/06/14) DIATHER/CRYO TURBINECTOM (08/03/14) ETHMOIDECTOMY (08/03/14) EXC MAX SINUS LESION NEC (08/03/14) OTHER COMPUTER ASSISTED SURGERY (08/03/14) Family History: States: No Known Family Hx, Unknown Family Hx - Social History Hx Tobacco Use: No Hx Alcohol Use: Yes Hx Substance Use: Yes - Immunization History Hx Tetanus Toxoid Vaccination: Yes Hx Influenza Vaccination: No Hx Pneumococcal Vaccination: No Review Of Systems Except As Marked, All Systems Reviewed And Found Negative. Constitutional: Negative for: Fever, Chills Cardiovascular: Negative for: Chest Pain, Light Headedness Respiratory: Positive for: Shortness of Breath Neurological: Negative for: Dizziness Physical Exam - Physical Exam Appears: Non-toxic, No Acute Distress Skin: Normal Color, Warm, Dry Head: Atraumatic, Normacephalic Eye(s): bilateral: Normal Inspection, EOMI Nose: Normal Oral Mucosa: Moist Neck: Normal, Supple Chest: Symmetrical Cardiovascular: Rhythm Regular Respiratory: Wheezing (minor inspiratory/expiratory wheeze on right side) Extremity: Normal ROM, No Pedal Edema Neurological/Psych: Oriented x3 ED Course And Treatment O2 Sat by Pulse Oximetry: 95 (RA) Pulse Ox Interpretation: Normal - Radiology CXR: Interpreted by Me CXR Interpretation: Yes: No Acute Disease Progress Note: pepcid, prednisone, Duonebs x 2 Reevaluation Time: 13:40 Reassessment Condition: Improved Medical Decision Making Medical Decision Making: asthma smoking 3-4 ciggs/day? poor med compliance good MDI technique lost to f/u w Dr. Medrano- Art Coordinator Disposition Doctor Will See Patient In The: Office Counseled Patient/Family Regarding: Studies Performed, Diagnosis - Disposition Referrals: Jocelyne Medrano MD [Staff Provider] - Disposition: HOME/ ROUTINE Disposition Time: 13:41 Condition: GOOD Additional Instructions: Asthma: Duoneb Inhaled treatments with TWO ampules of Duoneb- every 3-4 hours (5-7x/day when symptomatic) Prednisone 40 mg daily for 4 more days (to complete 5 days of Prednisone) pepcid 20 mg twice a day (9AM and 9PM) lowers stomach acid and gastritis from the Prednisone and lowers allergic component of Asthma Albuterol puffer 2 puffs every 4 hours as needed when not home. Always use with Aerochamber Puffer (plastic tube) for higher effectiveness ( improves from 20% to 70%) Cigarette smoking and 2nd hand smoking are VERY strong provokers of Asthma exacerbations. Follow-up with Dr. Medrano- your Asthma specialist. Costochondritis: Prednisone with help with this too ice packs to the affected ribs 1/2 hour per hour, nothing hot no hot showers (makes inflammation worse) Prescriptions: Albuterol HFA [Ventolin HFA 90 mcg/actuation (8 g)] 2 puff IH Q4H PRN #1 puff PRN Reason: asthma Albuterol/Ipratropium [Duoneb 3 MG/3 Ml-0.5 MG/3 Ml 3 Ml] 6 ml IH Q4H PRN #100 neb PRN Reason: asthma Prednisone [Deltasone] 40 mg PO DAILY #8 tablet Spacer, Inhalation [Aerochamber] 1 dev IH DAILY #1 dev Instructions: Asthma in Adults, Costochondritis (DC) Forms: [facility] (Faroese) - Clinical Impression Clinical Impression: Asthma, Thoracic back pain - Scribe Statement The provider has reviewed the documentation as recorded by the Scribe (Yodit Julien) Provider Attestation: All medical record entries made by the Scribe were at my direction and personally dictated by me. I have reviewed the chart and agree that the record accurately reflects my personal performance of the history, physical exam, medical decision making, and the department course for this patient. I have also personally directed, reviewed, and agree with the discharge instructions and disposition.
--- NOTE | 2018-03-17 14:42 | RAD ---
HISTORY: cough w asthma. COMPARISON: November 28, 2017. TECHNIQUE: Chest PA and lateral FINDINGS: LUNGS: No active pulmonary disease. PLEURA: No significant pleural effusion identified. No pneumothorax apparent. CARDIOVASCULAR: Normal. OSSEOUS STRUCTURES: No significant abnormalities. VISUALIZED UPPER ABDOMEN: Normal. OTHER FINDINGS: None. IMPRESSION: No active disease. No significant interval change compared to the prior examination(s).
== END 2018-03-17 14:05 | disposition home or self-care (01) ==
LOC: C.ER 11:50
DX: J45.909 Unspecified asthma, uncomplicated (principal); F17.210 Nicotine dependence, cigarettes, uncomplicated

== ENCOUNTER 2018-05-08 17:16 | Emergency (ER) | payer MEDICAID ==
[2018-05-08 17:16] VITALS: BMI 26.6
[2018-05-08 17:44] VITALS: BP 113/79; PULSE 97; RESP 99; TEMP 98.3; O2SAT 95
[2018-05-08] MEDS ORDERED: Albuterol 0.083% Inhal Sol (2.5 mg/3 mL) UD IH STA ×2 (18:04→18:38)
--- NOTE | 2018-05-08 18:08 | C.PDOC ---
History Of Present Illness <Shea Renee - Last Filed: 05/08/18 18:05> <Lelia Salter - Last Filed: 05/08/18 18:19> 27 year old female with history of asthma presents to ED for evaluation of cold symptoms for the past 3 weeks. Associated symptoms include nasal congestion and dry cough. Patient reports she developed wheezing for the past two days and was not improved by inhaler treatment. Patient also states she is taking low dose of Prednisone with no relief. Denies fever, dyspnea, shortness of breath, abdominal pain, nausea. (Lelia Salter) <Shea Renee - Last Filed: 05/08/18 18:05> History Per: Patient History/Exam Limitations: no limitations Onset/Duration Of Symptoms: Days Current Symptoms Are (Timing): Still Present Associated Symptoms: Cough (dry), Nasal Congestion Recent travel outside of the [place]: No <Lelia Salter - Last Filed: 05/08/18 18:19> Time Seen by Provider: 05/08/18 17:47 Chief Complaint (Nursing): Cough, Cold, Congestion Past Medical History - Medical History PMH: Asthma Surgical History: Tonsillectomy Family History: States: Unknown Family Hx - Social History Hx Tobacco Use: No Hx Alcohol Use: Yes Hx Substance Use: Yes - Immunization History Hx Tetanus Toxoid Vaccination: Yes Hx Influenza Vaccination: No Hx Pneumococcal Vaccination: No <Shea Renee - Last Filed: 05/08/18 18:05> Reviewed: Historical Data, Nursing Documentation, Vital Signs <Lelia Salter - Last Filed: 05/08/18 18:19> Vital Signs: Last Vital Signs Temp 98.3 F 05/08/18 17:43 Pulse 97 H 05/08/18 17:43 Resp 99 H 05/08/18 17:43 BP 113/79 05/08/18 17:43 Pulse Ox 95 05/08/18 18:09 - [facility] Procedures CLOSURE SKIN & SUBCUTANEOUS NEC (11/06/14) DIATHER/CRYO TURBINECTOM (08/03/14) ETHMOIDECTOMY (08/03/14) EXC MAX SINUS LESION NEC (08/03/14) OTHER COMPUTER ASSISTED SURGERY (08/03/14) Physical Exam - Physical Exam Appears: Well, Non-toxic, No Acute Distress Skin: Normal Color, Warm, Dry, No Rash Head: Normacephalic Eye(s): bilateral: PERRL Ear(s): Bilateral: Normal Nose: No Flaring, Discharge (B/L nasal congestion with scant clear rhinorrhea) Oral Mucosa: Moist, No Drooling Throat: No Erythema, No Drooling Neck: Normal ROM, Trachea Midline, Supple Cardiovascular: Rhythm Regular, No Murmur, No JVD Respiratory: No Decreased Breath Sounds, No Accessory Muscle Use, No Rales, No Rhonchi, No Stridor, Wheezing (scattered R>L expiratory wheezing, BS equal B/L) Gastrointestinal/Abdominal: Soft, No Tenderness, No Distention, No Guarding Back: No Vertebral Tenderness, No Paraspinal Tenderness Extremity: Normal ROM, No Tenderness, No Deformity, No Swelling Neurological/Psych: Oriented x3, Normal Speech <Shea Renee - Last Filed: 05/08/18 18:05> ED Course And Treatment O2 Sat by Pulse Oximetry: 95 <Shea Renee - Last Filed: 05/08/18 18:05> Disposition <Shea Renee - Last Filed: 05/08/18 18:05> <Lelia Salter - Last Filed: 05/08/18 18:19> - Disposition Forms: [facility] (Kiswahili)
[2018-05-08] MEDS ORDERED: Albuterol 0.083% Inhal Sol (2.5 mg/3 mL) UD ONE ×2 (18:15→18:49)
--- NOTE | 2018-05-08 18:26 | C.PDOC ---
History Of Present Illness 27 year old female with history of asthma presents to ED for evaluation of cold symptoms for the past 2 weeks associated with nasal congestion and dry cough. Patient reports she developed wheezing for the past two days and was not improved by inhaler treatment. Patient also states she is taking low dose of Prednisone, given by PMD with no relief. Pt Denies fever, drooling, dyspnea, shortness of breath, CP, palpitation, abdominal pain, nausea, vomiting, back pain, UTI sx. Ambulate to ED for evaluation, not in any apparent distress. Time Seen by Provider: 05/08/18 17:47 Chief Complaint (Nursing): Cough, Cold, Congestion History Per: Patient Onset/Duration Of Symptoms: Days Current Symptoms Are (Timing): Still Present Recent travel outside of the [place]: No Past Medical History Reviewed: Historical Data, Nursing Documentation, Vital Signs Vital Signs: Last Vital Signs Temp 98.3 F 05/08/18 17:43 Pulse 97 H 05/08/18 17:43 Resp 99 H 05/08/18 17:43 BP 113/79 05/08/18 17:43 Pulse Ox 95 05/08/18 19:06 - Medical History PMH: Asthma Surgical History: No Surg Hx, Tonsillectomy - [facility] Procedures CLOSURE SKIN & SUBCUTANEOUS NEC (11/06/14) DIATHER/CRYO TURBINECTOM (08/03/14) ETHMOIDECTOMY (08/03/14) EXC MAX SINUS LESION NEC (08/03/14) OTHER COMPUTER ASSISTED SURGERY (08/03/14) Family History: States: No Known Family Hx - Social History Hx Tobacco Use: No Hx Alcohol Use: Yes Hx Substance Use: Yes - Immunization History Hx Tetanus Toxoid Vaccination: Yes Hx Influenza Vaccination: No Hx Pneumococcal Vaccination: No Review Of Systems Except As Marked, All Systems Reviewed And Found Negative. ENT: Positive for: Nose Congestion Respiratory: Positive for: Cough (dry), Wheezing. Negative for: Other (dyspnea) Gastrointestinal: Negative for: Nausea, Abdominal Pain Physical Exam - Physical Exam Appears: Well, Non-toxic, No Acute Distress Skin: Normal Color, Warm, Dry, No Rash Head: Normacephalic Eye(s): bilateral: PERRL Ear(s): Bilateral: Normal Nose: No Flaring, Discharge (B/L nasal congestion with scant cldar rhinorrhea) Oral Mucosa: Moist, No Drooling Tongue: Normal Appearing Lips: Normal Appearing Throat: No Erythema, No Drooling Neck: Trachea Midline, Supple Cardiovascular: Rhythm Regular, No Murmur, No JVD Respiratory: No Decreased Breath Sounds, No Accessory Muscle Use, No Stridor, Wheezing (scattered expiratory wheezing R>L, BS equal B/L) Gastrointestinal/Abdominal: Soft, No Tenderness, No Distention, No Guarding Extremity: Normal ROM, No Pedal Edema, No Swelling Neurological/Psych: Oriented x3, Normal Speech ED Course And Treatment O2 Sat by Pulse Oximetry: 95 (RA) Pulse Ox Interpretation: Normal - Radiology CXR: Interpreted by Me, Viewed By Me CXR Interpretation: Yes: No Acute Disease Progress Note: On re-eval, pt is afebrile, hemodynamicaly stable. Non-toxic. Ambulatory in ED with stable gait. PulseOx 96%RA. ENT: no acute findings. Neck: Supple, (-) midline tenderness. Lungs: mod improvement in exp wheezing , BS equal B/L. Abd: benign, (-) guarding, (-) rebound. Neurologicaly intact. CXR (-) acute findings. Pt has clinical findings c/w asthma exacerbation. Pt advised on course of ds. ref. to f/u with PMD, Pulm in 2-3 days for re-eval. return to Ed if any worsening or new changes. Disposition Counseled Patient/Family Regarding: Studies Performed, Diagnosis, Need For Followup, Rx Given - Disposition Referrals: Jocelyne Conde MD [Staff Provider] - Disposition: HOME/ ROUTINE Disposition Time: 18:59 Condition: STABLE Additional Instructions: Encourage fluids Take medication as prescribed Continue nebulizer treatment every 4 hours for 2-3 days Follow up with PMD in 2-3 days for re-evaluation. return to ED if any worsening or new changes. Prescriptions: Albuterol 0.083% [Albuterol 0.083% Inhal [place] (2.5 mg/3 ml) UD] 2.5 mg IH Q6 #50 neb Cetirizine HCl [Zyrtec] 10 mg PO DAILY #20 capsule Prednisone [Deltasone] 40 mg PO DAILY #8 tablet Instructions: Asthma in Adults Forms: [facility] (Stateless) - Clinical Impression Clinical Impression: Asthma attack - PA / WATER RESOURCE ENGINEER / Resident Statement MD/DO has reviewed & agrees with the documentation as recorded. - Scribe Statement The provider has reviewed the documentation as recorded by the Scribe renetta Ayala All medical record entries made by the Dontrell were at my direction and personally dictated by me. I have reviewed the chart and agree that the record accurately reflects my personal performance of the history, physical exam, medical decision making, and the department course for this patient. I have also personally directed, reviewed, and agree with the discharge instructions and disposition.
--- NOTE | 2018-05-08 18:45 | RAD ---
Date of service: 05/08/2018 HISTORY: Cough COMPARISON: 11/28/2017 TECHNIQUE: Chest PA and lateral FINDINGS: LUNGS: No infiltrate. PLEURA: No significant pleural effusion identified. No pneumothorax apparent. CARDIOVASCULAR: Normal. OSSEOUS STRUCTURES: No significant abnormalities. VISUALIZED UPPER ABDOMEN: Normal. OTHER FINDINGS: None. IMPRESSION: No active disease.
== END 2018-05-08 19:50 | disposition home or self-care (01) ==
LOC: C.ER 17:16
DX: J45.909 Unspecified asthma, uncomplicated (principal)

== ENCOUNTER 2019-02-10 08:50 | Emergency (ER) | payer MEDICAID ==
[2019-02-10] MEDS ORDERED: Albuterol-Ipratrop 3 mg / 0.5 (3 ml) UD ONE ×2 (09:03→09:47)
[2019-02-10 09:04] VITALS: BMI 29.0
[2019-02-10 09:07] VITALS: RESP 20; TEMP 99.4
--- NOTE | 2019-02-10 09:37 | C.PDOC ---
History Of Present Illness 28 year old female presents to ED with complaint of asthma exacerbation for the past several days. Patient notes no improvement with albuterol treatment. Patient states history of "difficult to control" asthma "for a while." Patient has previously been on Breo, but no relief was noted. Patient also states history of seasonal allergies and is currently on medication with minimal relief. Patient has had no prior allergy or pulmonary evaluation. She states she has a history of smoking and quit 2-3 months ago. She has had multiple ER visits for asthma exacerbation. She denies fever or chills. ASTHMA EXAC X SEV DAYS. NO IMPROVE ALBUTEROL. NO FEVER. PS HO "DIFFICULT TO CONTROL" ASTHMA "FOR AWHILE". PREVIOUSLY ON BREO BUT NO RELIEF. PS HO SEASONAL ALLERGIES, CURRENTLY ON MEDS BUT MIN RELIEF. PT NO PRIOR ALLERGY OR PULM EVAL. HO SMOKING, QUIT 2-3 MONTHS AGO. MULT PRIOR ER VISITS FOR ASTHMA EXAC EXAM NONTOXIC HEENT +RHINORRHEA LUNGS B/L EXP WHEEZE NO RETRACTION SPEAKING FULL SENTENCES REMAINDER NEG MDM ASTHMA EXAC RECUR. ADVISED NEED FOR PULM AND/OR EXECUTIVE SECRETARY EVAL, CORRECTION ASTHMA MAINTENANCE TX. CXR, STEROID, NEB <Ale Daigle - Last Filed: 02/10/19 12:19> History Per: Patient History/Exam Limitations: no limitations Onset/Duration Of Symptoms: Days Current Symptoms Are (Timing): Still Present Associated Symptoms: Dyspnea, Cough. denies: Hemoptysis, Fever, Hives, Itching <Ale Daigle - Last Filed: 02/10/19 12:19> <Butch Aguirre - Last Filed: 02/11/19 11:05> Time Seen by Provider: 02/10/19 09:15 Chief Complaint (Nursing): Shortness Of Breath Past Medical History Reviewed: Historical Data, Nursing Documentation, Vital Signs Vital Signs: Last Vital Signs Temp 99.4 F 02/10/19 09:05 Pulse 92 H 02/10/19 09:05 Resp 20 02/10/19 09:05 BP 120/84 02/10/19 09:05 Pulse Ox 97 02/10/19 09:05 Primary Care Provider: FAMILY PROVIDER,NO - Medical History PMH: Asthma Surgical [facility] CLOSURE SKIN & SUBCUTANEOUS NEC (11/06/14) DIATHER/CRYO TURBINECTOM (08/03/14) ETHMOIDECTOMY (08/03/14) EXC MAX SINUS LESION NEC (08/03/14) OTHER COMPUTER ASSISTED SURGERY (08/03/14) Family History: States: Unknown Family Hx - Social History Hx Tobacco Use: No Hx Alcohol Use: Yes Hx Substance Use: Yes - Immunization History Hx Tetanus Toxoid Vaccination: Yes Hx Influenza Vaccination: No Hx Pneumococcal Vaccination: No <Ale Daigle - Last Filed: 02/10/19 12:19> Vital Signs: Last Vital Signs Temp 99.4 F 02/10/19 09:05 Pulse 90 02/10/19 10:18 Resp 20 02/10/19 10:18 BP 108/68 02/10/19 10:18 Pulse Ox 97 02/10/19 12:20 - [facility] Procedures CLOSURE SKIN & SUBCUTANEOUS NEC (11/06/14) DIATHER/CRYO TURBINECTOM (08/03/14) ETHMOIDECTOMY (08/03/14) EXC MAX SINUS LESION NEC (08/03/14) OTHER COMPUTER ASSISTED SURGERY (08/03/14) <Butch Aguirre - Last Filed: 02/11/19 11:05> Review Of Systems Except As Marked, All Systems Reviewed And Found Negative. Respiratory: Positive for: Cough, Shortness of Breath, Wheezing <Ale Daigle - Last Filed: 02/10/19 12:19> Physical Exam - Physical Exam Appears: Well, Non-toxic, No Acute Distress, Other (speaking full sentences) Skin: Normal Color, Warm, Dry Head: Atraumatic, Normacephalic Eye(s): bilateral: Normal Inspection Ear(s): Bilateral: Normal Nose: Discharge Oral Mucosa: Moist Throat: Normal, No Erythema, No Exudate Neck: Normal ROM, Supple Chest: Symmetrical, No Deformity Cardiovascular: Rhythm Regular, No Murmur Respiratory: No Accessory Muscle Use, No Rales, No Rhonchi, Wheezing (bilateral expiratory wheezing), No Other (retractions) Gastrointestinal/Abdominal: Soft, No Tenderness Extremity: Capillary Refill (<2 seconds) Extremity: Bilateral: Atraumatic, Normal Color And Temperature, Normal ROM Pulses: Left Radial: Normal, Right Radial: Normal Neurological/Psych: Oriented x3, Normal Speech, Normal Cognition <Ale Daigle - Last Filed: 02/10/19 12:19> ED Course And Treatment O2 Sat by Pulse Oximetry: 97 (in RA) Pulse Ox Interpretation: Normal - Radiology CXR: Interpreted by Me CXR Interpretation: Yes: No Acute Disease <Ale Daigle - Last Filed: 02/10/19 12:19> Medical Decision Making Medical Decision Making: MDM: Asthma exacerbation recurrent. Patient advised on need for wrecking supervisor and/or insurance examining clerk evaluation. Patient advised on need for ferry terminal supervisor asthma maintenance treatment. CXR, steroid,and nebulizer given to patient. <OxanaAle - Last Filed: 02/10/19 12:19> Disposition Counseled Patient/Family Regarding: Studies Performed, Diagnosis, Need For Followup, Rx Given - Disposition Disposition Time: 10:08 <OxanaAle - Last Filed: 02/10/19 12:19> <Butch Aguirre - Last Filed: 02/11/19 11:05> - Disposition Referrals: [facility] [Outside] [facility] [Outside] Disposition: HOME/ ROUTINE Condition: IMPROVED Prescriptions: Albuterol 0.083% [Albuterol 0.083% Inhal [place] (2.5 mg/3 ml) UD] 2.5 mg IH Q6 #50 neb Albuterol HFA [Ventolin HFA 90 mcg/actuation (8 g)] 2 puff IH PRN PRN #1 inhaler PRN Reason: Shortness Of Breath Fluticasone/Salmeterol 250/50 [Advair Diskus] 1 puff IH Q12 #1 inh predniSONE [Prednisone] 60 mg PO DAILY #12 tab Instructions: Asthma, Adult (DC) Forms: Flock (Tajik) - Clinical Impression Clinical Impression: Exacerbation of asthma - Scribe Statement The provider has reviewed the documentation as recorded by the Scribe (Arielle Luo) All medical record entries made by the Scribe were at my direction and personally dictated by me. I have reviewed the chart and agree that the record accurately reflects my personal performance of the history, physical exam, medical decision making, and the department course for this patient. I have also personally directed, reviewed, and agree with the discharge instructions and disposition. <Victor HugogabrielaAle - Last Filed: 02/10/19 12:19> Addendum Addendum: 02/11/19 10:59 Received a call from [facility] that patient was told that her prescriptions have been sent to the pharmacy. The pharmacy has not received any prescriptions. Verbal prescriptions were dictated to the pharmacist by me. <Butch Aguirre E - Last Filed: 02/11/19 11:05>
[2019-02-10] MEDS ORDERED: Albuterol-Ipratrop 3 mg / 0.5 (3 ml) UD IH STA (09:38)
[2019-02-10 10:18] VITALS: BP 108/68; PULSE 90
--- NOTE | 2019-02-10 10:19 | RAD ---
HISTORY: ASTHMA COMPARISON: Chest x-ray performed 05/08/18 TECHNIQUE: Chest PA and lateral, 2 views FINDINGS: LUNGS: Right hilar prominence. No focal consolidation. Please note that chest x-ray has limited sensitivity for the detection of pulmonary masses. PLEURA: No significant pleural effusion identified. No definite pneumothorax . CARDIOVASCULAR: The cardiomediastinal silhouette appears within normal limits of size. No atherosclerotic calcification present. OSSEOUS STRUCTURES: Mild elevation/eventration of the right hemidiaphragm. VISUALIZED UPPER ABDOMEN: Unremarkable. OTHER FINDINGS: None. IMPRESSION: Right hilar prominence. No focal consolidation.
[2019-02-10 12:06] VITALS: O2SAT 97
== END 2019-02-10 10:18 | disposition home or self-care (01) ==
LOC: C.ER 08:50
DX: J45.901 Unspecified asthma with (acute) exacerbation (principal); Z87.891 Personal history of nicotine dependence